=== PATIENT | female | born 1960 ===

== ENCOUNTER 2017-01-16 08:34 | Day surgery (SDC) | payer OTHER ==
[2016-12-12 07:51] VITALS: BMI 26.6
[2017-01-16] MEDS ORDERED: cefOXitin IV 2 gm in Dextrose 50 ML IVPB ONE (09:12)
[2017-01-16] MEDS ORDERED: Strong Iodine Topical Sol. 5%-10% ONE (09:13)
[2017-01-16] MEDS ORDERED: Lactated Ringer's 1,000 ML IV ONE (10:35)
[2017-01-16] MEDS ORDERED: HYDROmorphone 0.5 mg/0.5 ml ISec IVP PRN (10:41)
[2017-01-16] MEDS ORDERED: Midazolam 2 MG/2 ML VIAL ONE (11:24)
[2017-01-16] MEDS ORDERED: Propofol 10 mg/ml Inj (20 ML) ONE (11:24)
--- NOTE | 2017-01-16 11:39 | PCM.SURG1 ---
Surgeon's Initial Post Op Note - Surgeon's Notes Surgeon: Dr Contreras Type Soldering Machine Tender: Dr Lucinda Velázquez( Resident ) Type of Anesthesia: General Endo Anesthesia Administered By: ASHWIN Collier, supervised by Dr Gerry Lindquist Pre-Operative Diagnosis: Severe cervical dysplasia Operative Findings: Normal sized uterus sounded to a deapth of 8cm. There were some areas around the SCJ which did not take stain. Post-Operative Diagnosis: Same as Preop Diagnosis Operation Performed: LEEP cone biopsy using Abaxia cone excisor. Endometrial curretings. Endocervical curretage. Specimen/Specimens Removed: Cervical tissue, endometrial and endocervical currettings Estimated Blood Loss: EBL {In ML}: 10 Post-Op Condition: Good Date of Surgery/Procedure: 01/16/17 Time of Surgery/Procedure: 11:42
[2017-01-16] MEDS ORDERED: Lactated Ringer's 500 ML IV ONE (12:21)
[2017-01-16 13:01] VITALS: RESP 18
[2017-01-16 15:51] VITALS: BP 122/49; PULSE 64; TEMP 98; O2SAT 100
--- NOTE | 2017-01-20 08:09 | OP ---
PROCEDURE DATE: 01/16/2017 PREOPERATIVE DIAGNOSIS: A 56-year-old female with severe cervical dysplasia. POSTOPERATIVE DIAGNOSIS: A 56-year-old female with severe cervical dysplasia. PROCEDURE: Loop electrosurgical excision procedure cone biopsy using the Godoy Cone Excisor. SURGEON: Dr. Contreras. BRACELET MAKER NOVELTY: Lucinda Velázquez, a family practice resident. TYPE OF ANESTHESIA: General endotracheal. ANESTHESIOLOGIST: ASHWIN Collier, supervised by Dr. Gerry Lindquist. OPERATIVE FINDINGS: Normal sized anteverted uterus which was sounded to a depth of about 7-8 cm. Th ere were some areas on the cervix at the squamocolumnar junction which did not take the iodine stain. IV FLUID INTAKE: About 500 mL. URINE OUTPUT: About 50 mL. ESTIMATED BLOOD LOSS: About 10 mL. DESCRIPTION OF PROCEDURE: After obtaining informed consent, the patient was sent to the OR with IV r unning. The patient was sent to the OR and put on the OR table in a supine position. After adequate general anesthesia, the patient was placed in the dorsal lithotomy position on stirrups. The patien t was then prepped and draped in a sterile fashion. The pelvic examination was performed with above findings. The urinary bladder was drained of about 50 mL of clear urine using a straight catheter. The posterior wall of the vagina was depressed using a weighted speculum and the anterior wall was el evated with an L-shaped retractor to expose the cervix. The cervix was at this point held with a sin gle tooth toothed tenaculum on the upper lip of the cervix. Endocervical curettage was performed at this point after sounding the uterus to about 7-8 cm. Endometrial curettings were also performed in a similar fashion. The single tooth tenaculum was removed. After assuring hemostasis by pressure, t he cervix was treated with Lugol's iodine. A cervical cone biopsy was performed using a Godoy Cone Excisor, large shallow, and a cone of tissue was obtained after the procedure. The raw surfaces aft er excision of the cornua were treated with ball Bovie hemostat. Additional hemostasis was also obta ined using Monsel solution. Once the procedure was completed, all the instruments were taken from th e vagina. The patient was replaced in the supine position and was sent to the recovery room awake an d in stable condition. All counts of instruments and laparotomy pads were correct x 3. The patient tolerated the procedure well. Guru Contreras MD cc: [id number] TT: 01/20/2017 08:08:47 mn
== END 2017-01-16 13:40 | disposition home or self-care (01) ==
LOC: C.SDS 08:34
PROVIDERS: ATTEND Obstetrics & Gynecology
DX: D06.0 Carcinoma in situ of endocervix (principal); A63.0 Anogenital (venereal) warts
CPT/HCPCS: 57522; 88305; J0694; J1100; J1170; J1885; J2001; J2250; J2405; J2704; J3010; J7120